=== PATIENT | male | born 1970 | race Caucasian/White ===

== ENCOUNTER 2021-06-07 17:05 | Inpatient (IN) | payer BC ==
[~2021-06-07] VITALS: Ht 182.9 cm; Wt 90.0 kg
[2021-06-07] MEDS ORDERED: iohexol 350MG/ML 100ml bottle IV ONE (17:23)
[2021-06-07 17:35] LABS: BASOPHILS # (AUTO) 0.1 X10'3 (0-0.2); BASOPHILS % (AUTO) 0.7 % (0-1); EOSINOPHILS % (AUTO) 0.4 % (0-6); HEMOGLOBIN 15.6 g/dl (14.0-17.9); LYMPHOCYTES # (AUTO) 2.5 X10'3 (1.1-4.8); LYMPHOCYTES % (AUTO) 31.4 % (21-51); MEAN CORPUSCULAR HEMOGLOBIN 30.1 PG (27.0-31.0); MEAN CORPUSCULAR HGB CONC 34.5 g/dL (33.0-36.5); MEAN CORPUSCULAR VOLUME 87.2 FL (78-98); MEAN PLATELET VOLUME 7.7 FL (7.4-10.4); MONOCYTES # (AUTO) 0.5 X10'3 (0-0.9); NEUTROPHILS # (AUTO) 4.9 X10'3 (1.8-7.7); NEUTROPHILS % (AUTO) 61.5 % (42-75); PLATELET COUNT 336 X10'3 (140-440); RED BLOOD COUNT 5.17 X10'6 (4.70-6.10); RED CELL DISTRIBUTION WIDTH 12.4 % (11.5-14.5)
[2021-06-07 17:48] LABS: APTT 33 SECONDS (22-32)
[2021-06-07 17:57] LABS: ALANINE AMINOTRANSFERASE 55 U/L (12-78); ALBUMIN 4.5 G/DL (3.4-5.0); ALBUMIN/GLOBULIN RATIO 1.5 (1.1-1.5); ALKALINE PHOSPHATASE 72 IU/L (46-116); ANION GAP 8 (8-16); ASPARTATE AMINO TRANSFERASE 24 U/L (10-37); BILIRUBIN,TOTAL 0.8 MG/DL (0.1-1.0); BLOOD UREA NITROGEN 24 MG/DL (7-18); BUN/CREATININE RATIO 22.4 (5.4-32.0); CALCIUM 9.1 MG/DL (8.5-10.1); CHLORIDE 103 MMOL/L (99-107); CREATININE 1.07 MG/DL (0.60-1.10); GLUCOSE 109 MG/DL (70-104); POTASSIUM 4.1 MMOL/L (3.5-5.1); SODIUM 140 MMOL/L (135-145); TOTAL CARBON DIOXIDE 29.1 MMOL/L (24-32); TOTAL PROTEIN 7.6 G/DL (6.4-8.2); eGFR 73 ML/MIN
[2021-06-07] MEDS ORDERED: atorvastatin 20mg tablet PO STA (17:59)
[2021-06-07] MEDS ORDERED: magnesium 4gm in 100ml NS 100 ML IV PRN (18:00)
[2021-06-07] MEDS ORDERED: magnesium 2GM in 50ml NS 50 ML IV PRN (18:00)
[2021-06-07] MEDS ORDERED: acetaminophen 325mg tablet PO PRN ×2 (18:00)
[2021-06-07] MEDS ORDERED: bisacodyl 10mg suppository rectal RC PRN (18:00)
[2021-06-07] MEDS ORDERED: potassium CL 10mEq/100ml bag 100 ML IV PRN (18:00)
[2021-06-07] MEDS ORDERED: PERFLUTREN PROTEIN-A MICROSPHR (Optison) 0.22 MG/ML 3ML VIAL IV PRN (18:00)
[2021-06-07] MEDS ORDERED: diphenhydrAMINE 25mg capsule PO PRN (18:00)
[2021-06-07] MEDS ORDERED: HYDROcodone/acetaminophen 5mg/325mg tablet PO PRN (18:00)
[2021-06-07] MEDS ORDERED: magnesium Cl slow-release 64mg tablet PO PRN (18:00)
[2021-06-07] MEDS ORDERED: acetaminophen 650mg rectal suppository RC PRN (18:00)
[2021-06-07] MEDS ORDERED: HYDROcodone/acetaminophen 10/325mg tab PO PRN (18:00)
[2021-06-07] MEDS ORDERED: potassium Cl 20 mEq SR tablet PO PRN ×2 (18:00)
[2021-06-07] MEDS ORDERED: mag hydrox/Alum hydrox/simeth 30ml oral suspension PO PRN (18:00)
[2021-06-07] MEDS ORDERED: aspirin 325mg tablet, delayed-release (Ecotrin) PO ONE (18:00)
[2021-06-07] MEDS ORDERED: magnesium hydroxide 30ml (MOM) UD suspension PO PRN (18:00)
[2021-06-07] MEDS ORDERED: morphine 2 MG/ML inj. syringe IV PRN ×2 (18:00)
[2021-06-07] MEDS ORDERED: ondansetron/PF 4mg/2ml inj IV PRN (18:00)
[2021-06-07 19:19] LABS: HEMOGLOBIN A1C 8.5 % (4.5-6.2)
[2021-06-07 19:24] LABS: CLARITY,URINE CLEAR (Clear); COLOR,URINE YELLOW (Yellow); GLUCOSE, URINE NEGATIVE (Neg); KETONES,URINE 15 mg/dl (Neg); LEUKOCYTE ESTERASE ,URINE NEGATIVE (Neg); NITRITES, URINE NEGATIVE (Neg); OCCULT BLOOD,URINE NEGATIVE (Neg); PH,URINE 5.5 (4.8-8.0); PROTEIN,URINE NEGATIVE (Neg); UROBILINOGEN,URINE 0.2 E.U/dL (0.2-1.0)
[2021-06-07 19:25] LABS: UA COLLECTION TYPE NON-SPECIFIED
[2021-06-07 19:36] LABS: URINE AMPHETAMINE SCREEN NEGATIVE (Neg); URINE BARBITUATE SCREEN NEGATIVE (Neg); URINE BENZODIAZEPINES SCREEN NEGATIVE (Neg); URINE CANNABINOID SCREEN NEGATIVE (Neg); URINE COCAINE SCREEN NEGATIVE (Neg); URINE METHADONE SCREEN NEGATIVE (Neg); URINE OPIATE SCREEN NEGATIVE (Neg); URINE PHENCYCLIDINE SCREEN NEGATIVE (Neg)
[2021-06-07] MEDS: docusate sod 100mg capsule PO SCH (19:55)
[2021-06-07] MEDS: K and/or MAG REPLACEMENT MC SCH (20:03)
[2021-06-07] MEDS: normal saline 1000ml 1,000 ML IV SCH (20:12)
[2021-06-07] MEDS: heparin, porcine 5000 units/ml vial SQ SCH (20:13)
[2021-06-08 03:22] LABS: BASOPHILS % (AUTO) 0.7 % (0-1); EOSINOPHILS # (AUTO) 0.1 X10'3 (0-0.9); EOSINOPHILS % (AUTO) 0.9 % (0-6); HEMOGLOBIN 14.9 g/dl (14.0-17.9); LYMPHOCYTES # (AUTO) 2.3 X10'3 (1.1-4.8); LYMPHOCYTES % (AUTO) 37.9 % (21-51); MEAN CORPUSCULAR HGB CONC 33.9 g/dL (33.0-36.5); MEAN CORPUSCULAR VOLUME 88.3 FL (78-98); MONOCYTES # (AUTO) 0.4 X10'3 (0-0.9); NEUTROPHILS # (AUTO) 3.2 X10'3 (1.8-7.7); NEUTROPHILS % (AUTO) 53.5 % (42-75); PLATELET COUNT 288 X10'3 (140-440); RED BLOOD COUNT 4.98 X10'6 (4.70-6.10); RED CELL DISTRIBUTION WIDTH 12.6 % (11.5-14.5)
[2021-06-08 03:30] LABS: ALANINE AMINOTRANSFERASE 47 U/L (12-78); ALBUMIN 3.6 G/DL (3.4-5.0); ALBUMIN/GLOBULIN RATIO 1.2 (1.1-1.5); ALKALINE PHOSPHATASE 66 IU/L (46-116); ANION GAP 6 (8-16); ASPARTATE AMINO TRANSFERASE 22 U/L (10-37); BILIRUBIN,TOTAL 0.7 MG/DL (0.1-1.0); BLOOD UREA NITROGEN 20 MG/DL (7-18); BUN/CREATININE RATIO 20.2 (5.4-32.0); CALCIUM 8.4 MG/DL (8.5-10.1); CHLORIDE 104 MMOL/L (99-107); CHOL/HDL RATIO 5.4 (0.00-4.99); CHOLESTEROL 163 MG/DL (0-200); CREATININE 0.99 MG/DL (0.60-1.10); GLUCOSE 173 MG/DL (70-104); HDL CHOLESTEROL 30 MG/DL (35-60); LDL CHOLESTEROL 104 MG/DL (50-100); MAGNESIUM 2.3 MG/DL (1.5-2.4); PHOSPHORUS 3.8 MG/DL (2.3-4.5); POTASSIUM 3.9 MMOL/L (3.5-5.1); SODIUM 138 MMOL/L (135-145); TOTAL CARBON DIOXIDE 27.7 MMOL/L (24-32); TOTAL PROTEIN 6.5 G/DL (6.4-8.2); TRIGLYCERIDES 140 MG/DL (20-135); eGFR 80 ML/MIN
--- NOTE | 2021-06-08 03:42 | NUR ---
Throughout neuro assessments this evening, patient has stated symptoms have felt markably better since coming here to the hospital. Patient at beginning of the shift was endorsing slight tingling in his lips as the only continued manifestation. Patient this morning at 0300 still endorsing minimal tingling, but states that he feels the symptoms have almost completely resolved. [employer]ist tests and other assessments have been WNL as documented in flowsheet.
[2021-06-08] MEDS: normal saline 1000ml 1,000 ML IV SCH ×3 (04:28→17:34)
[2021-06-08] MEDS: docusate sod 100mg capsule PO SCH (07:27)
[2021-06-08] MEDS: K and/or MAG REPLACEMENT MC SCH (08:00)
[2021-06-08] MEDS ORDERED: aspirin 81mg, enteric-coated 1 TAB TABLET.DR PO SCH (08:00)
[2021-06-08] MEDS ORDERED: atorvastatin 10mg tablet PO SCH (08:00)
[2021-06-08] MEDS: heparin, porcine 5000 units/ml vial SQ SCH (08:30)
--- NOTE | 2021-06-08 12:15 | NUR ---
no MRI today. stroke nurse lurdes at bedside and spoke with dr sandoval regarding pt being discharged.
[2021-06-08] MEDS ORDERED: glucagon, human recombinant 1mg kit SUBCUT PRN (16:00)
[2021-06-08] MEDS ORDERED: MESSAGE TO PHARMACY PO ONE (16:00)
[2021-06-08] MEDS ORDERED: dextrose 50%-water 50ml dispensing syringe IV PRN ×2 (16:00)
[2021-06-08] MEDS ORDERED: insulin Lispro (HumaLOG) vial - multi-dose SQ SCH (16:00)
[2021-06-08] MEDS ORDERED: dextrose ORAL solution 15 GM/59 ML bottle PO PRN ×2 (16:00)
[2021-06-08] MEDS ORDERED: lisinopril 20mg tablet PO SCH (16:05)
--- NOTE | 2021-06-08 16:16 | NUR ---
lori to come down and discharge pt. states he will be down here soon
--- NOTE | 2021-06-08 17:35 | NUR ---
per lori, pt will not be discharged but instead will stay overnight for mri in the am as he isnt sure if he will be able to get an mri within the next week with his pcp
[2021-06-08 17:38] VITALS: BP_DIAS 100
[2021-06-08 18:04] VITALS: BP_SYST 120
[2021-06-08] MEDS ORDERED: clopidogrel 300mg tablet PO ONE (18:45)
--- NOTE | 2021-06-08 19:04 | NUR ---
Page Accepted Message: CONTACT INFO FOR [facility]: [phone] (ROSELINE) FOR MRI RESULTS FOR WILY GARCIA Transaction number: [id number]
[2021-06-08] MEDS ORDERED: ASPI-611 PO (19:24)
[2021-06-08] MEDS ORDERED: ATOR20TA66 PO (19:24)
[2021-06-08] MEDS ORDERED: METF-1203 PO (19:24)
[2021-06-08] MEDS ORDERED: LISI20TA28 PO (19:24)
[2021-06-08] MEDS ORDERED: CLOP75TA15 PO (19:24)
[2021-06-08] MEDS ORDERED: SAXA5TAB PO (19:24)
--- NOTE | 2021-06-08 19:28 | NUR ---
SPOKE W/ RADIOLOGIST, ZABRINA MACHADO, MRI SHOWED NO ACUTE FINDINGS WAS "NORMAL"
[2021-06-08] MEDS ORDERED: insulin glargine (Lantus) pen - multi-dose SQ SCH (21:00)
[2021-06-09] MEDS ORDERED: clopidogrel 75mg tablet PO SCH (08:00)
== END 2021-06-08 20:00 | disposition home or self-care (01) | DRG 69 ==
LOC: ER 17:07 → ED HOLD 18:10 → EDBEDREQ 06-08 05:06
PROVIDERS: ADMIT Family Medicine; ATTEND Family Medicine
PROC: B3251ZZ Computerized Tomography (CT Scan) of Bilateral Common Carotid Arteries using Low Osmolar Contrast (ICD-10-PCS; principal; 2021-06-07)
PROC: B32G1ZZ Computerized Tomography (CT Scan) of Bilateral Vertebral Arteries using Low Osmolar Contrast (ICD-10-PCS; 2021-06-07)
PROC: B32R1ZZ Computerized Tomography (CT Scan) of Intracranial Arteries using Low Osmolar Contrast (ICD-10-PCS; 2021-06-07)
PROC: B3281ZZ Computerized Tomography (CT Scan) of Bilateral Internal Carotid Arteries using Low Osmolar Contrast (ICD-10-PCS; 2021-06-07)
DX: G45.9 Transient cerebral ischemic attack, unspecified (principal); U07.1 COVID-19; I10 Essential (primary) hypertension; L40.50 Arthropathic psoriasis, unspecified; R29.701 NIHSS score 1; F17.220 Nicotine dependence, chewing tobacco, uncomplicated; Z79.82 Long term (current) use of aspirin; Z79.899 Other long term (current) drug therapy; Z80.42 Family history of malignant neoplasm of prostate; Z82.49 Family history of ischemic heart disease and other diseases of the circulatory system
CPT/HCPCS: 36415; 70450; 70496; 70498; 70551; 71045; 80053; 80061; 80305; 81003; 82948; 83036; 83735; 84100; 85025; 85610; 85651; 85730; 86885; 86900; 86901; 87635; 93005; 93306; 99285; G0378; J1644; J1815; J7030; Q9967

== ENCOUNTER 2022-11-21 11:25 | Outpatient (CLI) | payer BC, OTHER ==
[~2022-11-21 11:25] MED LIST: ATOR20TA66 PO; CLOP75TA15 PO; LISI20TA28 PO; SAXA5TAB PO
[2022-11-21] MEDS ORDERED: GADOTERATE MEGLUMINE 7.5 MMOL/15 ML VIAL IV ONE (13:38)
== END 2022-11-21 23:00 | disposition short-term general hospital (02) ==
LOC: RAD 11:25
PROVIDERS: ATTEND Family Medicine
DX: M47.814 Spondylosis without myelopathy or radiculopathy, thoracic region (principal); M48.04 Spinal stenosis, thoracic region; M51.24 Other intervertebral disc displacement, thoracic region; M53.86 Other specified dorsopathies, lumbar region; Z98.890 Other specified postprocedural states; G89.18 Other acute postprocedural pain
CPT/HCPCS: 72157; 72158; A9575